=== PATIENT | male | born 1985 | race Caucasian/White ===

== ENCOUNTER 2019-08-11 10:35 | Inpatient (IN) | payer MEDICAID ==
[2019-08-11] VITALS (13 sets, daily range): BP systolic 91–120; BP diastolic 55–86
[~2019-08-11] VITALS: Ht 180.3 cm; Wt 55.8 kg
--- NOTE | 2019-08-11 10:35 | NUR ---
ED Nurse Note: pt brought in by [facility] from home c/c weakness, dehydration, nausea and vomiting since this morning. pt states he is diabetic and took insulin today this morning but denies checking sugar, pt states he had a banana and coffee and some water. noted pt HR 108, RR=28, tachypnea and weak with dry mouth. pt AA&ox4, gcs=15, skin warm and dry, air way intact, sinus tach on cardiac tech, will cont monitor. Addendum: 08/11/19 at 1303 by AMELIE ED Nurse Note: pt brought in by [facility] from home c/c weakness, dehydration, nausea and vomiting since this morning. pt states he is diabetic and took insulin 10 units today this morning but denies checking sugar, pt states he had a banana and coffee and some water. noted pt HR 108, RR=28, tachypnea and weak with dry mouth. pt AA&ox4, gcs=15, skin warm and dry, air way intact, sinus tach on cardiac tech, will cont monitor.
--- NOTE | 2019-08-11 10:40 | NUR ---
ED Nurse Note: ERMD notified regarding critically high blood sugar result, accucheck done at the bedside.
--- NOTE | 2019-08-11 11:00 | NUR ---
ED Nurse Note: PT PROVIDED W/ EXTRA WARM BLANKET FOR COMFORT, SAFETY PRECAUTIONS IN PLACE, WILL CONT MONITOR.
[2019-08-11 11:21] LABS: BASOPHILS % (AUTO) 0.9 % (0.0-2.0); EOSINOPHILS % (AUTO) 0.1 % (0.0-3.0); HEMATOCRIT 51.9 % (42.0-52.0); HEMOGLOBIN 16.4 G/DL (14.2-18.0); LYMPHOCYTES % (AUTO) 10.4 % (20.0-45.0); MEAN CORPUSCULAR VOLUME 101 FL (80-99); NEUTROPHILS % (AUTO) 84.6 % (45.0-75.0); PLATELET COUNT 420 K/UL (150-450); RED BLOOD COUNT 5.15 M/UL (4.70-6.10); RED CELL DISTRIBUTION WIDTH 12.8 % (11.6-14.8); WHITE BLOOD COUNT 13.4 K/UL (4.8-10.8)
[2019-08-11 11:58] LABS: ALANINE AMINOTRANSFERASE 63 U/L (12-78); ALBUMIN 4.3 G/DL (3.4-5.0); ALKALINE PHOSPHATASE 240 U/L (46-116); ANION GAP 29 mmol/L (5-15); ASPARTATE AMINO TRANSFERASE 43 U/L (15-37); BILIRUBIN,TOTAL 0.7 MG/DL (0.2-1.0); BLOOD UREA NITROGEN 30 mg/dL (7-18); CALCIUM 9.7 MG/DL (8.5-10.1); CHLORIDE 94 MMOL/L (98-107); CREATININE 1.7 MG/DL (0.55-1.30); POTASSIUM 5.7 MMOL/L (3.5-5.1); SODIUM 131 MMOL/L (136-145)
--- NOTE | 2019-08-11 12:00 | NUR ---
ED Nurse Note: notified to Dr. Orellana about patient's blood sugar of 757
[2019-08-11 12:01] LABS: CARBON DIOXIDE 8 MMOL/L (21-32)
[2019-08-11] MEDS ORDERED: Insulin Human Regular 100units/ml 3ml IV ONE (12:15)
--- NOTE | 2019-08-11 12:18 | NUR ---
ED Nurse Note: followed up pharmacy with the medication
[2019-08-11] MEDS ORDERED: Sodium Bicarbonate 50ml Carp IV ONE (12:30)
--- NOTE | 2019-08-11 12:43 | NUR ---
ED Nurse Note: RECEIVED INSULIN FROM PHARMACY AND STARTED THE MEDICATION ACCORDING TO ERMD ORDER, 9UNITS/HR, 2 RN VERIFIED.
[2019-08-11 13:25] LABS: APPEARANCE,URINE CLEAR; BILIRUBIN, URINE NEGATIVE (NEGATIVE); COLOR,URINE PALE YELLOW; GLUCOSE, URINE (UA) 4+ (NEGATIVE); KETONES,URINE 4+ (NEGATIVE); LEUKOCYTE ESTERASE ,URINE NEGATIVE (NEGATIVE); NITRITE,URINE NEGATIVE (NEGATIVE); PH,URINE 5 (4.5-8.0); PROTEIN,URINE 1+ (NEGATIVE); UROBILINOGEN,URINE NORMAL MG/DL (0.0-1.0)
--- NOTE | 2019-08-11 13:50 | Emergency Room Report ---
History of Present Illness General Chief Complaint: Vomiting Source: Patient Present Illness HPI 34-year-old male presents ED for evaluation. Brought in by EMS. Coming from home with nausea and vomiting and abdominal pain. History of gastritis. Symptoms started this morning. Pain is burning, 7 out of 10, nonradiating. Denies chest pain or shortness of breath. Denies fevers or chills. Accu-Chek critically high. States she is a diabetic and compliant with his medications. 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 Has not yet seen a PMD for this yet. Is not on any treatment yet. No other aggravating relieving factors. Denies any other associated symptoms Allergies: Coded Allergies: No Known Allergies (Unverified , 08/11/19) Patient History Past Medical History: DM Past Surgical History: none Pertinent Family History: none Social History: Denies: smoking, alcohol use, drug use Immunizations: UTD Reviewed Nursing Documentation: PMH: Agreed; PSxH: Agreed Nursing Documentation-PMH Past Medical History: No History, Except For Hx Diabetes: Yes Review of Systems All Other Systems: negative except mentioned in HPI Physical Exam Vital Signs Date Time Temp Pulse Resp B/P (MAP) Pulse Ox O2 Delivery O2 Flow Rate FiO2 08/11/19 10:35 98.2 98 16 117/82 (94) 99 Room Air Sp02 EP Interpretation: reviewed, normal General Appearance: alert, GCS 15, non-toxic, mild distress, cachetic, thin Head: normocephalic, atraumatic Eyes: bilateral eye normal inspection, bilateral eye PERRL ENT: hearing grossly normal, normal pharynx, no angioedema, normal voice Neck: full range of motion, supple/symm/no masses Respiratory: chest non-tender, lungs clear, normal breath sounds, speaking full sentences Cardiovascular #1: regular rate, rhythm, no edema Cardiovascular #2: 2+ carotid (R), 2+ carotid (L), 2+ radial (R), 2+ radial (L) , 2+ dorsalis pedis (R), 2+ dorsalis pedis (L) Gastrointestinal: normal bowel sounds, soft, non-distended, no guarding, no rebound, tenderness - epigastric Rectal: deferred Genitourinary: normal inspection, no CVA tenderness Musculoskeletal: back normal, gait/station normal, normal range of motion, non- tender Neurologic: alert, oriented x3, responsive, motor strength/tone normal, sensory intact, speech normal Psychiatric: judgement/insight normal, memory normal, mood/affect normal, no suicidal/homicidal ideation Reflexes: 3+ bicep (R), 3+ bicep (L), 3+ tricep (R), 3+ tricep (L), 3+ knee (R) , 3+ knee (L) Lymphatic: no adenopathy Procedures Critical Care Time Critical Care Time i. I feel this is a highly complex case requiring extensive working including EKG/Rhythm strip, Xray/CT/US, Blood/urine lab work, repeat exams while in ED, and administration of strong opiates/narcotics for pain control, admission to hospital or close patient follow up. Total time: 60 min bedside evaluation and treatment excludes procedures (EKG). Reason for critical care: DKA, acidosis Possible complications: hypotension, hypertension, MN, shock, arrhythmias, metabolic acidosis, end organ damage, respiratory failure. Interventions: labs, IVFS, EKG, insulin, insulin bolus, ABG, bicarbonate Course: Patient presenting with vomiting and critically high Accu-Chek. History of diabetes. Glucose greater than 700 with elevated anion gap, low bicarb. pH very low. Given IV fluids, given insulin bolus with insulin drip. Bicarbonate given. Consultations: nursing staff, EMS, family Performed by: Dr Blackwell Tolerated well condition = critical j. because of unstable vital signs this patient had a condition that could potentially threaten life or limb. I feel this is a critical patient who required my full attention while patient was considered critical. Total Critical Care Time excluding procedures was greater than 60 minutes Medical Decision Making Diagnostic Impression: Primary Impression: DKA (diabetic ketoacidoses) Qualified Codes: E13.10 - Other specified diabetes mellitus with ketoacidosis without coma Additional Impressions: Gastritis Qualified Codes: K29.70 - Gastritis, unspecified, without bleeding Leukemia Qualified Codes: C95.90 - Leukemia, unspecified not having achieved remission ER Course Hospital Course 34 yo M presents with abd pain, vomiting, accucheck critically high Differential diagnoses include: ETOH/drug ingestion, sepsis, DKA Clinical course Patient placed on stretcher. On campus monitor. After initial history and physical I ordered labs, pepcid, zofran, IVFS, EKG Labs-glucose greater than 700, anion gap elevated, bicarbonate low, mild leukocytosis EKG - NSR, no acute ischemic changes interpreted by me When IV fluids. Insulin bolus started. Insulin drip started. Bicarbonate given. Case discussed with Dr. Wei and he agreed to accept the patient to his service for further care and support i. I feel this is a highly complex case requiring extensive working including EKG/Rhythm strip, Xray/CT/US, Blood/urine lab work, repeat exams while in ED, and administration of strong opiates/narcotics for pain control, admission to hospital or close patient follow up. j. because of unstable vital signs this patient had a condition that could potentially threaten life or limb. I feel this is a critical patient who required my full attention while patient was considered critical. Total Critical Care Time excluding procedures was greater than 60 minutes diagnosis - DKA, gastritis, leukemia admitted to ICU in critical condition Labs Test 08/11/19 11:05 08/11/19 12:15 White Blood Count 13.4 K/UL (4.8-10.8) Red Blood Count 5.15 M/UL (4.70-6.10) Hemoglobin 16.4 G/DL (14.2-18.0) Hematocrit 51.9 % (42.0-52.0) Mean Corpuscular Volume 101 FL (80-99) Mean Corpuscular Hemoglobin 32.0 PG (27.0-31.0) Mean Corpuscular Hemoglobin Concent 31.7 G/DL (32.0-36.0) Red Cell Distribution Width 12.8 % (11.6-14.8) Platelet Count 420 K/UL (150-450) Mean Platelet Volume 7.0 FL (6.5-10.1) Neutrophils (%) (Auto) 84.6 % (45.0-75.0) Lymphocytes (%) (Auto) 10.4 % (20.0-45.0) Monocytes (%) (Auto) 4.0 % (1.0-10.0) Eosinophils (%) (Auto) 0.1 % (0.0-3.0) Basophils (%) (Auto) 0.9 % (0.0-2.0) Urine Color Pale yellow Urine Appearance Clear Urine pH 5 (4.5-8.0) Urine Specific [place] 1.015 (1.005-1.035) Urine Protein 1+ (NEGATIVE) Urine Glucose (UA) 4+ (NEGATIVE) Urine Ketones 4+ (NEGATIVE) Urine Blood Negative (NEGATIVE) Urine Nitrite Negative (NEGATIVE) Urine Bilirubin Negative (NEGATIVE) Urine Urobilinogen Normal MG/DL (0.0-1.0) Urine Leukocyte Esterase Negative (NEGATIVE) Urine RBC 0 /HPF (0 - 0) Urine WBC 0 /HPF (0 - 0) Urine Squamous Epithelial Cells Occasional /LPF Urine Bacteria Occasional /HPF (NONE) Sodium Level 131 MMOL/L (136-145) Potassium Level 5.7 MMOL/L (3.5-5.1) Chloride Level 94 MMOL/L (98-107) Carbon Dioxide Level 8 MMOL/L (21-32) Anion Gap 29 mmol/L (5-15) Blood Urea Nitrogen 30 mg/dL (7-18) Creatinine 1.7 MG/DL (0.55-1.30) Estimat Glomerular Filtration Rate 46.1 mL/min (>60) Glucose Level 757 MG/DL (74-106) Calcium Level 9.7 MG/DL (8.5-10.1) Magnesium Level 2.4 MG/DL (1.8-2.4) Total Bilirubin 0.7 MG/DL (0.2-1.0) Aspartate Amino Transf (AST/SGOT) 43 U/L (15-37) Alanine Aminotransferase (ALT/SGPT) 63 U/L (12-78) Alkaline Phosphatase 240 U/L (46-116) Total Protein 8.6 G/DL (6.4-8.2) Albumin 4.3 G/DL (3.4-5.0) Globulin 4.3 g/dL Albumin/Globulin Ratio 1.0 (1.0-2.7) Acetone Level Positive-moderate (NEGATIVE) Arterial Blood pH 7.099 (7.350-7.450) Arterial Blood Partial Pressure CO2 < 14.4 mmHg (35.0-45.0) Arterial Blood Partial Pressure O2 136.6 mmHg (75.0-100.0) Arterial Blood HCO3 mmol/L (22.0-26.0) Arterial Blood Oxygen Saturation 97.7 % (95-100) Arterial Blood Base Excess (-2-2) Terry Test Positive EKG Diagnostic Results Rate: normal Rhythm: NSR ST Segments: no acute changes ASA given to the pt in ED: No Rhythm Strip Diag. Results EP Interpretation: yes Rhythm: NSR, no PVC's, no ectopy Last Vital Signs Date Time Temp Pulse Resp B/P (MAP) Pulse Ox O2 Delivery O2 Flow Rate FiO2 08/11/19 12:40 97.3 106 20 113/69 99 Room Air Status: improved Disposition: ADMITTED INPATIENT Condition: Critical Referrals: NON PHYSICIAN (PCP) Roman Blackwell MD Aug 11, 2019 13:50
--- NOTE | 2019-08-11 14:17 | Infectious Diseases Prog Note ---
Assessment/Plan Problems: (1) Cough productive of purulent sputum Assessment & Plan: will order CXR to rule out pneumonia, send sputum culture and start him on vancomycin and cefepime empirically (2) Leukocytosis Assessment & Plan: rule out sepsis in immunocompromised host, will send blood culture x 2 and start vancomycin with cefepime empirically (3) Leukemia Assessment & Plan: was recently diagnosed at [facility], oncology eval is pending (4) DKA (diabetic ketoacidoses) Assessment & Plan: start insulin drip with close monitor of blood glucose in ICU . Subjective Allergies: Coded Allergies: No Known Allergies (Unverified , 08/11/19) Objective Vital Signs Last 24 Hour Vital Signs Date Time Temp Pulse Resp B/P (MAP) Pulse Ox O2 Delivery O2 Flow Rate FiO2 08/11/19 12:40 97.3 106 20 113/69 99 Room Air 08/11/19 11:40 97.3 103 16 118/68 99 Room Air 08/11/19 11:22 108 16 Room Air 08/11/19 10:40 98.2 108 28 120/63 99 Room Air 08/11/19 10:35 98.2 98 16 117/82 (94) 99 Room Air Height (Feet): 5 Height (Inches): 11.00 Weight (Pounds): 125 Laboratory Tests Test 08/11/19 11:05 08/11/19 12:15 White Blood Count 13.4 K/UL (4.8-10.8) H Red Blood Count 5.15 M/UL (4.70-6.10) Hemoglobin 16.4 G/DL (14.2-18.0) Hematocrit 51.9 % (42.0-52.0) Mean Corpuscular Volume 101 FL (80-99) H Mean Corpuscular Hemoglobin 32.0 PG (27.0-31.0) H Mean Corpuscular Hemoglobin Concent 31.7 G/DL (32.0-36.0) L Red Cell Distribution Width 12.8 % (11.6-14.8) Platelet Count 420 K/UL (150-450) Mean Platelet Volume 7.0 FL (6.5-10.1) Neutrophils (%) (Auto) 84.6 % (45.0-75.0) H Lymphocytes (%) (Auto) 10.4 % (20.0-45.0) L Monocytes (%) (Auto) 4.0 % (1.0-10.0) Eosinophils (%) (Auto) 0.1 % (0.0-3.0) Basophils (%) (Auto) 0.9 % (0.0-2.0) Urine Color Pale yellow Urine Appearance Clear Urine pH 5 (4.5-8.0) Urine Specific [place] 1.015 (1.005-1.035) Urine Protein 1+ (NEGATIVE) H Urine Glucose (UA) 4+ (NEGATIVE) H Urine Ketones 4+ (NEGATIVE) H Urine Blood Negative (NEGATIVE) Urine Nitrite Negative (NEGATIVE) Urine Bilirubin Negative (NEGATIVE) Urine Urobilinogen Normal MG/DL (0.0-1.0) Urine Leukocyte Esterase Negative (NEGATIVE) Urine RBC 0 /HPF (0 - 0) Urine WBC 0 /HPF (0 - 0) Urine Squamous Epithelial Cells Occasional /LPF Urine Bacteria Occasional /HPF (NONE) Sodium Level 131 MMOL/L (136-145) L Potassium Level 5.7 MMOL/L (3.5-5.1) H Chloride Level 94 MMOL/L (98-107) L Carbon Dioxide Level 8 MMOL/L (21-32) *L Anion Gap 29 mmol/L (5-15) H Blood Urea Nitrogen 30 mg/dL (7-18) H Creatinine 1.7 MG/DL (0.55-1.30) H Estimat Glomerular Filtration Rate 46.1 mL/min (>60) Glucose Level 757 MG/DL (74-106) *H Calcium Level 9.7 MG/DL (8.5-10.1) Magnesium Level 2.4 MG/DL (1.8-2.4) Total Bilirubin 0.7 MG/DL (0.2-1.0) Aspartate Amino Transf (AST/SGOT) 43 U/L (15-37) H Alanine Aminotransferase (ALT/SGPT) 63 U/L (12-78) Alkaline Phosphatase 240 U/L (46-116) H Total Protein 8.6 G/DL (6.4-8.2) H Albumin 4.3 G/DL (3.4-5.0) Globulin 4.3 g/dL Albumin/Globulin Ratio 1.0 (1.0-2.7) Acetone Level Positive-moderate (NEGATIVE) Arterial Blood pH 7.099 (7.350-7.450) Arterial Blood Partial Pressure CO2 < 14.4 mmHg (35.0-45.0) *L Arterial Blood Partial Pressure O2 136.6 mmHg (75.0-100.0) H Arterial Blood HCO3 mmol/L (22.0-26.0) Arterial Blood Oxygen Saturation 97.7 % (95-100) Arterial Blood Base Excess (-2-2) Terry Test Positive Current Medications Medications (Trade) Dose Ordered Sig/Chace Route PRN Reason Start Time Stop Time Status Last Admin Dose Admin Insulin Human Regular 100 units/ Sodium Chloride 100 ml @ 9 mls/hr Q24H IV 08/11/19 12:15 08/11/19 23:22 08/11/19 12:43 Gordy Zarco M.D. Aug 11, 2019 14:17
--- NOTE | 2019-08-11 14:28 | Consultation ---
History of Present Illness General Date patient seen: Aug 11, 2019 Time patient seen: 14:00 Chief Complaint: nausea,Vomiting and productive cough Referring physician: Maximino Jones Reason for Consultation: leukocytosis rule out sepsis , with cough Present Illness HPI This is a 34-year-old male with PMH of DM poorly controlled , and was recently diagnosed with leukemia at [facility], presented to [facility] ED for nausea, vomiting, and poor oral intake for the last couple of days . Patient developed cough productive of greenish phlegm too over the last 3 days , no SOB. denied any recent travel or sick contact. He also complained of abdominal pain which started this morning. Pain is burning, 7 out of 10, nonradiating. Denies chest pain or shortness of breath. Denies fevers or chills. Accu-Chek in ED was critically high. he is a diabetic and non compliant with his medications. 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 Has not yet seen an oncologist for this yet and not on any treatment yet. Denies any other associated symptoms. in ED his wbc was elevated, so infectious disease consult was requested for antibiotics treatment Allergies: Coded Allergies: No Known Allergies (Unverified , 08/11/19) Patient History History Provided By: Patient, Medical Record, EMS Healthcare decision maker Resuscitation status Advanced Directive on File Past Medical/Surgical History Past Medical/Surgical History: (1) Diabetes mellitus (2) Leukemia (3) Gastritis Review of Systems Constitutional: Reports: malaise, weakness Eye: Reports: no symptoms ENT: Reports: nose congestion, nasal discharge Respiratory: Reports: cough, sputum Cardiovascular: Reports: no symptoms Gastrointestinal: Reports: abdominal pain, nausea, vomiting Genitourinary: Reports: no symptoms Musculoskeletal: Reports: muscle pain Skin: Reports: no symptoms Psychiatric: Reports: anxiety Endocrine: Reports: no symptoms Hematologic/Lymphatic: Reports: see HPI Physical Exam General Appearance: WD/WN, no apparent distress, alert, lethargic, cachetic, thin Lines, tubes and drains: peripheral HEENT: normocephalic, atraumatic, anicteric, mucous membranes moist, PERRL, EOMI, pharynx normal, supple, no JVD Neck: non-tender, normal alignment, supple, normal inspection Respiratory/Chest: chest wall non-tender, no accessory muscle use, decreased breath sounds Cardiovascular/Chest: normal peripheral pulses, normal rate, regular rhythm, no gallop/murmur, no JVD Abdomen: normal bowel sounds, no mass, abnormal bowel sounds, tender Genitourinary/Rectal: normal genital exam Extremities: normal range of motion, non-tender, normal inspection, no calf tenderness Skin Exam: normal pigmentation, warm/dry Neurologic: cardiac technologist II-XII grossly normal, alert, responsive Musculoskeletal: normal muscle bulk, no effusion Last 24 Hour Vital Signs Date Time Temp Pulse Resp B/P (MAP) Pulse Ox O2 Delivery O2 Flow Rate FiO2 08/11/19 12:40 97.3 106 20 113/69 99 Room Air 08/11/19 11:40 97.3 103 16 118/68 99 Room Air 08/11/19 11:22 108 16 Room Air 08/11/19 10:40 98.2 108 28 120/63 99 Room Air 08/11/19 10:35 98.2 98 16 117/82 (94) 99 Room Air Laboratory Tests Test 08/11/19 11:05 08/11/19 12:15 White Blood Count 13.4 K/UL (4.8-10.8) H Red Blood Count 5.15 M/UL (4.70-6.10) Hemoglobin 16.4 G/DL (14.2-18.0) Hematocrit 51.9 % (42.0-52.0) Mean Corpuscular Volume 101 FL (80-99) H Mean Corpuscular Hemoglobin 32.0 PG (27.0-31.0) H Mean Corpuscular Hemoglobin Concent 31.7 G/DL (32.0-36.0) L Red Cell Distribution Width 12.8 % (11.6-14.8) Platelet Count 420 K/UL (150-450) Mean Platelet Volume 7.0 FL (6.5-10.1) Neutrophils (%) (Auto) 84.6 % (45.0-75.0) H Lymphocytes (%) (Auto) 10.4 % (20.0-45.0) L Monocytes (%) (Auto) 4.0 % (1.0-10.0) Eosinophils (%) (Auto) 0.1 % (0.0-3.0) Basophils (%) (Auto) 0.9 % (0.0-2.0) Urine Color Pale yellow Urine Appearance Clear Urine pH 5 (4.5-8.0) Urine Specific [place] 1.015 (1.005-1.035) Urine Protein 1+ (NEGATIVE) H Urine Glucose (UA) 4+ (NEGATIVE) H Urine Ketones 4+ (NEGATIVE) H Urine Blood Negative (NEGATIVE) Urine Nitrite Negative (NEGATIVE) Urine Bilirubin Negative (NEGATIVE) Urine Urobilinogen Normal MG/DL (0.0-1.0) Urine Leukocyte Esterase Negative (NEGATIVE) Urine RBC 0 /HPF (0 - 0) Urine WBC 0 /HPF (0 - 0) Urine Squamous Epithelial Cells Occasional /LPF Urine Bacteria Occasional /HPF (NONE) Sodium Level 131 MMOL/L (136-145) L Potassium Level 5.7 MMOL/L (3.5-5.1) H Chloride Level 94 MMOL/L (98-107) L Carbon Dioxide Level 8 MMOL/L (21-32) *L Anion Gap 29 mmol/L (5-15) H Blood Urea Nitrogen 30 mg/dL (7-18) H Creatinine 1.7 MG/DL (0.55-1.30) H Estimat Glomerular Filtration Rate 46.1 mL/min (>60) Glucose Level 757 MG/DL (74-106) *H Calcium Level 9.7 MG/DL (8.5-10.1) Magnesium Level 2.4 MG/DL (1.8-2.4) Total Bilirubin 0.7 MG/DL (0.2-1.0) Aspartate Amino Transf (AST/SGOT) 43 U/L (15-37) H Alanine Aminotransferase (ALT/SGPT) 63 U/L (12-78) Alkaline Phosphatase 240 U/L (46-116) H Total Protein 8.6 G/DL (6.4-8.2) H Albumin 4.3 G/DL (3.4-5.0) Globulin 4.3 g/dL Albumin/Globulin Ratio 1.0 (1.0-2.7) Acetone Level Positive-moderate (NEGATIVE) Arterial Blood pH 7.099 (7.350-7.450) Arterial Blood Partial Pressure CO2 < 14.4 mmHg (35.0-45.0) *L Arterial Blood Partial Pressure O2 136.6 mmHg (75.0-100.0) H Arterial Blood HCO3 mmol/L (22.0-26.0) Arterial Blood Oxygen Saturation 97.7 % (95-100) Arterial Blood Base Excess (-2-2) Terry Test Positive Height (Feet): 5 Height (Inches): 11.00 Weight (Pounds): 125 Medications Current Medications Medications (Trade) Dose Ordered Sig/Chace Route PRN Reason Start Time Stop Time Status Last Admin Dose Admin Insulin Human Regular 100 units/ Sodium Chloride 100 ml @ 9 mls/hr Q24H IV 08/11/19 12:15 08/11/19 23:22 08/11/19 12:43 Assessment/Plan Problem List: (1) Cough productive of purulent sputum Assessment & Plan: will order CXR to rule out pneumonia, send sputum culture and start him on vancomycin and cefepime empirically ICD Codes: R05 - Cough SNOMED: 26317636 (2) Leukocytosis Assessment & Plan: rule out sepsis in immunocompromised host, will send blood culture x 2 and start vancomycin with cefepime empirically ICD Codes: D72.829 - Elevated white blood cell count, unspecified SNOMED: 944432840, 498616865 (3) Leukemia Assessment & Plan: was recently diagnosed at [facility], oncology eval is pending ICD Codes: C95.90 - Leukemia, unspecified not having achieved remission SNOMED: 28984771, 64487538 Qualifiers: Qualified Codes: C95.90 - Leukemia, unspecified not having achieved remission (4) DKA (diabetic ketoacidoses) Assessment & Plan: start insulin drip with close monitor of blood glucose in ICU . ICD Codes: E11.10 - Type 2 diabetes mellitus with ketoacidosis without coma SNOMED: 238676422, 96293035 Qualifiers: Qualified Codes: E13.10 - Other specified diabetes mellitus with ketoacidosis without coma Gordy Zarco M.D. Aug 11, 2019 14:28
--- NOTE | 2019-08-11 14:30 | NUR ---
ED Nurse Note: Patient refused CRe and VRE swab, MRSA swab collected
--- NOTE | 2019-08-11 15:07 | Diagnostic Imaging Report ---
Indication: Chest pain Comparison: None A single view chest radiograph was obtained. Findings: Cardiomediastinal appearance is within normal limits for age. The lungs are clear. Pulmonary vascularity is appropriate. The diaphragmatic contour is smooth and costophrenic angles are sharp. No pleural effusions are identified. The bones are unremarkable. Impression: No acute findings
--- NOTE | 2019-08-11 15:40 | NUR ---
ED Nurse Note: paged doctor nasreen regarding admission order and start pt based on DKA protocol and insulin drip based on hospital policy.
[2019-08-11 15:43] LABS: ANION GAP 22 mmol/L (5-15); BLOOD UREA NITROGEN 24 mg/dL (7-18); CARBON DIOXIDE 16 MMOL/L (21-32); CHLORIDE 104 MMOL/L (98-107); CREATININE 1.4 MG/DL (0.55-1.30); POTASSIUM 4.3 MMOL/L (3.5-5.1); SODIUM 142 MMOL/L (136-145)
--- NOTE | 2019-08-11 15:43 | NUR ---
ED Nurse Note: insulin drip changed to 3.5 units /hr per policy. 2 rn verified.
[2019-08-11 15:48] LABS: ALANINE AMINOTRANSFERASE 52 U/L (12-78); ALBUMIN 3.4 G/DL (3.4-5.0); ALKALINE PHOSPHATASE 186 U/L (46-116); ASPARTATE AMINO TRANSFERASE 31 U/L (15-37); BILIRUBIN,TOTAL 0.5 MG/DL (0.2-1.0)
--- NOTE | 2019-08-11 15:50 | NUR ---
Donaldo bethea in ED - 08/11/19 at 1719 by [email or web address] ED Nurse Note: paged doctor nasreen for admission order.
--- NOTE | 2019-08-11 15:55 | NUR ---
Note neema in EDM - 08/11/19 at 1719 by KPAKARINE ED Nurse Note: spoke with Dr. Wei and start pt on DKA ICU's protocol and start insulin drip based on hospital policy.
[2019-08-11] MEDS ORDERED: Insulin Human Regular 100units/ml 3ml IV PRN ×5 (16:00→20:15)
--- NOTE | 2019-08-11 16:10 | NUR ---
ED Nurse Note: contacted Dr. Wei to notify repeat CMP order, per doctor's telephone order/readback, d/c insulin drip. start lantus 10units bid, regular insulin 5 units w/ meals, and start pt on moderate insulin protocol. NS = 150cc/hr for iv fluid contact Liz for physician consult. will cont monitor.
--- NOTE | 2019-08-11 16:14 | NUR ---
ED Nurse Note: dc insulin drip per Dr. Wei, 2 rn verified.
[2019-08-11] MEDS ORDERED: NovoLOG Insulin Flexpen SUBQ SCH ×2 (16:30→16:50)
--- NOTE | 2019-08-11 16:37 | NUR ---
ED Nurse Note: contacted Dr. Wei regarding pt's admission to ICU, per Dr. Wei downgrade pt to SDU. nurse sup notified.
[2019-08-11] MEDS ORDERED: Cefepime HCl 2 GM in D5W 55 ML IVPB SCH (17:00)
--- NOTE | 2019-08-11 17:35 | NUR ---
ED Nurse Note: report given to YUDELKA Weiss from ICU - SDU overflow.
--- NOTE | 2019-08-11 17:50 | NUR ---
TRANSFER TO FLOOR: Patient transferred to ICU (SDU overflow) via gurney on ACLS protocol and care endorsed to YUDELKA Carreno, report was given to nursery hand nurse Isela from ICU. pt sinus tach on cardiac monitor technician, resp even and unlabored on RA, iv intact and patent, informed receiving YUDELKA Carreno to contact Dr. Hill for consult and pt refusing swabs for vre/cre. belongings sent w/ pt and endorsed.
[2019-08-11] MEDS ORDERED: Levemir Flexpen SUBQ SCH (18:00)
[2019-08-11] MEDS ORDERED: Vancomycin 1gm/D5W 275ml IVPB ONE ×2 (18:00)
[2019-08-11] MEDS ORDERED: HUMULIN 70100 UNIT/2 SUBQ (18:37)
--- NOTE | 2019-08-11 19:12 | NUR ---
HAND-OFF: Report given to YUDELKA Vargas.
--- NOTE | 2019-08-11 19:12 | NUR ---
NURSE NOTES: Received report from Ev Jones RN. Patient asleep and responsive to verbal. Denies any pain/discomfort. No nausea/vomiting noted. Right AC 18G and Left FA 22G IV intact and running NS 150ml/hr. Will continue plan of care.
[2019-08-11] MEDS ORDERED: D5 1/2NS 1,000 ML IV SCH ×2 (20:15)
[2019-08-11] MEDS ORDERED: Insulin Rate Change 1 Each MISC PRN ×2 (20:15)
--- NOTE | 2019-08-11 20:17 | NUR ---
NURSE NOTES: Talked with Dr. Hill and new orders read back and carried. Will continue plan of care.
[2019-08-11] MEDS: D5NS 1,000 ML IV SCH (20:36)
--- NOTE | 2019-08-11 21:30 | NUR ---
NURSE NOTES: Started insulin drip 1.5 unit/hr with Algorithm 1. Will continue plan of care.
--- NOTE | 2019-08-11 22:30 | NUR ---
NURSE NOTES: Insulin drip rate changed to 2.5unit/hr and 5 units bolus given. Will continue plan of care.
[2019-08-11] MEDS: Insulin Human Regular 100units/ml 3ml IV PRN ×2 (22:38→23:36)
--- NOTE | 2019-08-11 23:30 | NUR ---
NURSE NOTES: SONY 236 noted. Changed algorithm 1 to 2 and Insulin 5 units bolus given. And called [employer] for new label. Addendum: 08/12/19 at 0104 by ADIA ARECHIGA RN Wrong entry.
[2019-08-12] VITALS (18 sets, daily range): BP systolic 87–117; BP diastolic 51–84
--- NOTE | 2019-08-12 00:30 | NUR ---
NURSE NOTES: BS 236 noted. Changed algorithm 1 to 2 and Insulin 5 units bolus given. And called [facility] for new label.
[2019-08-12] MEDS: Insulin Human Regular 100units/ml 3ml IV PRN (00:42)
--- NOTE | 2019-08-12 00:45 | NUR ---
NURSE NOTES: Unable to start new insulin order because rate of new insulin drip order for algorithm 2 is ml/hr. Called [facility] and requested to change to unit/hr. Will continue plan of care.
--- NOTE | 2019-08-12 02:30 | NUR ---
NURSE NOTES: BS in target range. Will continue plan of care.
--- NOTE | 2019-08-12 03:36 | NUR ---
NURSE NOTES: BS is in target range. No s/sx of hypoglycemia noted. Will continue plan of care.
[2019-08-12] MEDS ORDERED: Cefepime HCl 2 GM in NS 55 ML IVPB SCH (05:00)
[2019-08-12] MEDS: D5NS 1,000 ML IV SCH (05:42)
[2019-08-12] MEDS ORDERED: Vancomycin 500 MG in NS 110 ML IVPB SCH (06:00)
[2019-08-12] MEDS ORDERED: Vancomycin 500mg/D5W 110ml IVPB SCH ×2 (06:00)
[2019-08-12 06:30] LABS: ANION GAP 13 mmol/L (5-15); BLOOD UREA NITROGEN 14 mg/dL (7-18); CALCIUM 7.9 MG/DL (8.5-10.1); CARBON DIOXIDE 22 MMOL/L (21-32); CHLORIDE 105 MMOL/L (98-107); CREATININE 1.2 MG/DL (0.55-1.30); POTASSIUM 3.6 MMOL/L (3.5-5.1); SODIUM 140 MMOL/L (136-145)
--- NOTE | 2019-08-12 06:30 | NUR ---
NURSE NOTES: Blood sugar 61 noted. Will check BS at 0700 and will follow up with
[2019-08-12 06:43] LABS: BASOPHILS % (AUTO) 1.6 % (0.0-2.0); EOSINOPHILS % (AUTO) 1.5 % (0.0-3.0); HEMATOCRIT 39.3 % (42.0-52.0); HEMOGLOBIN 13.3 G/DL (14.2-18.0); LYMPHOCYTES % (AUTO) 29.7 % (20.0-45.0); MEAN CORPUSCULAR VOLUME 96 FL (80-99); MONOCYTES % (AUTO) 7.3 % (1.0-10.0); PLATELET COUNT 321 K/UL (150-450); RED CELL DISTRIBUTION WIDTH 11.1 % (11.6-14.8); WHITE BLOOD COUNT 8.9 K/UL (4.8-10.8)
--- NOTE | 2019-08-12 07:35 | NUR ---
HAND-OFF: Report given to YUDELKA Estes. Endorsed plan of care.
[2019-08-12] MEDS ORDERED: Levemir Flexpen SUBQ SCH (08:00)
--- NOTE | 2019-08-12 08:00 | NUR ---
NURSE NOTES: Receive end of shift report from Sam JHA. Pt is awake, alert, oriented x4. Pt is on room air with 100% O2sat and clear lung sounds. scrubbing machine operator displays NSR with heart rate in the 90s. Bounding peripheral pulses are noted on palpation. Abdomen is flat, soft, nontender to touch with active bowel sounds on auscultation. Skin is intact. Pt has two peripheral IV access, right AC #18G and left FA #20G. Insulin drip has been stopped per MD order and IV fluid is being replaced with NS at 100ml/hour per MD order. Pt denies any pain or discomfort at this time. Pt is sitting up in bed having breakfast. Bed is locked, in lowest position, the two side rails up, and call light within reach. Urinal is at bedside. Will continue with plan of care.
--- NOTE | 2019-08-12 10:00 | NUR ---
NURSE NOTES: Pt was seen by Dr Hill. MD aware regarding lab results, pt now off insulin drip and on NS at 100ml/hour. Per MD pt to be administered Levemir and Novolog insulins SQ per order and sliding scale.
--- NOTE | 2019-08-12 10:30 | NUR ---
NURSE NOTES: Pt is asleep with stable VS and in no apparent distress.
[2019-08-12] MEDS ORDERED: NovoLOG Insulin Flexpen SUBQ SCH ×2 (11:30→11:50)
--- NOTE | 2019-08-12 12:10 | NUR ---
NURSE NOTES: Pt is sitting up in bed, having lunch. Denies any pain or discomfort at this time. Pt remains on room air with 100% O2sat and newscast producer displays NSR with heart rate in the 70's. Pt remains afebrile. IV fluid continues to infuse NS at 100ml/hour. Blood glucose was reassessed via Accucheck with result 219 and insulin was administered per Sliding Scale order plus 5units Novolog standing order. Order in place to transfer pt out of ICU to med surg. Awaiting for bed availability.
--- NOTE | 2019-08-12 14:30 | NUR ---
NURSE NOTES: Pt is refusing to have gown/bed linens changed. Denies any pain or discomfort at this time. VS stable. Will be transferring pt to Med Surg per MD order.
--- NOTE | 2019-08-12 14:40 | NUR ---
TRANSFER TO FLOOR: Patient was transferred to Med Surg via hospital bed per MD order. Report was given to Verna JHA. Pt's belonging's list was checked and signed in front of the pt with the receiving nurse. Skin is intact. VS stable. Endorsed plan of care.
--- NOTE | 2019-08-12 14:41 | NUR ---
NURSE NOTES: Patient arrived on unit via hospital bed. Stable. Denies pain or SOB. Patient oriented to room, call light, and unit. Patient encouraged to use call light for assistance, verbalized understanding. Belongings accounted for with 2 RN. Patient's home insulin sent down to pharmacy. Patient is in bed in locked and lowest position with call light within reach. Will continue to monitor.
[2019-08-12] MEDS: Cefepime HCl 2 GM in NS 55 ML IVPB SCH (16:50)
--- NOTE | 2019-08-12 16:50 | Consultation ---
History of Present Illness General Chief Complaint: Vomiting Referring physician: Maximino Jones Reason for Consultation: leukocytosis rule out sepsis , with cough Present Illness Allergies: Coded Allergies: No Known Allergies (Unverified , 08/11/19) Medication History Miscellaneous Medications Hum Insulin Nph/Reg Insulin Hm (Humulin 70-30 Vial), 0 SUBQ, (Reported) Patient History Healthcare decision maker Resuscitation status Full Code Advanced Directive on File No Physical Exam Last 24 Hour Vital Signs Date Time Temp Pulse Resp B/P (MAP) Pulse Ox O2 Delivery O2 Flow Rate FiO2 08/12/19 14:50 97.4 100 16 111/67 (82) 99 08/12/19 14:00 90 16 110/60 (77) 100 08/12/19 13:00 98 15 103/51 (68) 100 08/12/19 12:00 84 08/12/19 12:00 98.0 96 16 114/80 (91) 100 08/12/19 12:00 Room Air 08/12/19 11:00 82 16 117/84 (95) 100 08/12/19 10:00 84 16 104/62 (76) 100 08/12/19 09:00 94 16 105/63 (77) 100 08/12/19 08:00 97.7 96 16 99/59 (72) 100 08/12/19 08:00 Room Air 08/12/19 08:00 97 08/12/19 07:00 89 14 92/60 (71) 100 08/12/19 06:00 87 14 87/64 (72) 100 08/12/19 05:00 90 14 96/61 (73) 100 08/12/19 04:00 Room Air 08/12/19 04:00 91 14 94/56 (69) 100 08/12/19 04:00 105 08/12/19 03:00 89 14 88/56 (67) 100 08/12/19 02:00 83 14 88/56 (67) 100 08/12/19 01:00 102 15 97/54 (68) 100 08/12/19 00:00 Room Air 08/12/19 00:00 98.0 108 15 106/67 (80) 100 08/12/19 00:00 108 08/11/19 23:00 107 16 104/67 (79) 100 08/11/19 22:00 94 16 95/59 (71) 96 08/11/19 21:00 94 14 94/56 (69) 100 08/11/19 20:00 98.3 90 15 99/59 (72) 100 08/11/19 20:00 Room Air 08/11/19 20:00 92 08/11/19 19:00 95 14 91/55 (67) 100 08/11/19 18:22 Room Air 08/11/19 18:10 98.3 92 18 99/58 (72) 100 08/11/19 17:50 98.5 103 16 107/56 100 Room Air Intake and Output 08/11/19 08/12/19 19:00 07:00 Intake Total 100 ml 1806.6 ml Balance 100 ml 1806.6 ml Intake Oral 480 ml IV Total 100 ml 1326.6 ml # Voids 1 # Bowel Movements 2 Laboratory Tests Test 08/12/19 05:33 White Blood Count 8.9 K/UL (4.8-10.8) Red Blood Count 4.10 M/UL (4.70-6.10) L Hemoglobin 13.3 G/DL (14.2-18.0) L Hematocrit 39.3 % (42.0-52.0) L Mean Corpuscular Volume 96 FL (80-99) Mean Corpuscular Hemoglobin 32.5 PG (27.0-31.0) H Mean Corpuscular Hemoglobin Concent 33.9 G/DL (32.0-36.0) Red Cell Distribution Width 11.1 % (11.6-14.8) L Platelet Count 321 K/UL (150-450) Mean Platelet Volume 6.7 FL (6.5-10.1) Neutrophils (%) (Auto) 60.0 % (45.0-75.0) Lymphocytes (%) (Auto) 29.7 % (20.0-45.0) Monocytes (%) (Auto) 7.3 % (1.0-10.0) Eosinophils (%) (Auto) 1.5 % (0.0-3.0) Basophils (%) (Auto) 1.6 % (0.0-2.0) Sodium Level 140 MMOL/L (136-145) Potassium Level 3.6 MMOL/L (3.5-5.1) Chloride Level 105 MMOL/L (98-107) Carbon Dioxide Level 22 MMOL/L (21-32) Anion Gap 13 mmol/L (5-15) Blood Urea Nitrogen 14 mg/dL (7-18) Creatinine 1.2 MG/DL (0.55-1.30) Estimat Glomerular Filtration Rate > 60 mL/min (>60) Glucose Level 92 MG/DL (74-106) # Hemoglobin A1c 10.3 % (4.3-6.0) H Calcium Level 7.9 MG/DL (8.5-10.1) L Height (Feet): 5 Height (Inches): 11.00 Weight (Pounds): 130 Medications Current Medications Medications (Trade) Dose Ordered Sig/Chace Route PRN Reason Start Time Stop Time Status Last Admin Dose Admin Cefepime HCl 2 gm/ Sodium Chloride 55 ml @ 110 mls/hr Q12HR@0500,1700 IVPB 08/12/19 17:00 08/18/19 16:59 Dextrose (Dextrose 50%) 25 ml Q30M PRN IV Hypoglycemia 08/12/19 14:45 09/11/19 07:14 Dextrose (Dextrose 50%) 50 ml Q30M PRN IV Hypoglycemia 08/12/19 14:45 09/11/19 07:14 Insulin Aspart (NovoLOG) BEFORE MEALS AND HS SUBQ 08/12/19 16:30 09/11/19 11:29 Insulin Aspart (NovoLOG) 5 units NOVOTIAC SUBQ 08/12/19 16:50 09/11/19 11:49 Insulin Detemir (Levemir) 15 units DAILY SUBQ 08/13/19 09:00 09/11/19 07:59 Sodium Chloride 1,000 ml @ 100 mls/hr Q10H IV 08/12/19 14:45 09/11/19 07:59 08/12/19 14:45 Vancomycin HCl (Vanco rx to dose) 1 ea DAILY PRN MISC Per rx protocol 08/12/19 15:00 09/11/19 14:59 Vancomycin HCl 500 mg/Sodium Chloride 110 ml @ 110 mls/hr Q12HR@0600,1800 IVPB 08/12/19 18:00 08/17/19 05:59 Assessment/Plan Assessment/Plan: Hematology Consult Chief Complaint: nausea,Vomiting and productive cough Referring physician: Connor Jones Reason for Consultation: leukocytosis rule out sepsis, anemia DOS: 9.28.19 HPI 34-year-old male with PMH of DM poorly controlled , and was recently diagnosed with leukemia at [facility], presented to [facility] ED for nausea, vomiting, and poor oral intake for the last couple of days . Patient developed cough productive of greenish phlegm too over the last 3 days , no SOB. denied any recent travel or sick contact. He also complained of abdominal pain which started this morning. Pain is burning, 7 out of 10, nonradiating. Denies chest pain or shortness of breath. Denies fevers or chills. Accu-Chek in ED was critically high. he is a diabetic and non compliant with his medications. 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 Has not yet seen an oncologist for this yet and not on any treatment yet. Denies any other associated symptoms. in ED his wbc was elevated, so infectious disease consult was requested for antibiotics treatment, at this time, does not want to discuss leukemia dx. Allergies: No Known Allergies (Unverified , 08/11/19) Patient History History Provided By: Patient, Medical Record, EMS Healthcare decision maker Resuscitation status Advanced Directive on FilePast Medical/Surgical History: (1) Diabetes mellitus (2) Leukemia (3) Gastritis Review of Systems Constitutional: Reports: malaise, weakness Eye: Reports: no symptoms ENT: Reports: nose congestion, nasal discharge Respiratory: Reports: cough, sputum Cardiovascular: Reports: no symptoms Gastrointestinal: Reports: abdominal pain, nausea, vomiting Genitourinary: Reports: no symptoms Musculoskeletal: Reports: muscle pain Skin: Reports: no symptoms Psychiatric: Reports: anxiety Endocrine: Reports: no symptoms Hematologic/Lymphatic: Reports: see HPI Physical Exam General Appearance: nad, alert, lethargic, cachetic Neck: non-tender, normal alignment, supple Respiratory: chest wall non-tender, no accessory muscle use Cardiovascular/Chest: normal peripheral pulses, rrr Abdomen: normal bowel sounds, no mass, abnormal bowel sounds, tender Extremities: normal range of motion, non-tender, normal inspection, no calf tenderness Neurologic: recreation teacher II-XII grossly normal, alert, responsive Musculoskeletal: normal muscle bulk Labs: noted Imaging: reviewed Assessment and Recs: # Leukemia recently diagnosed recently at [facility], has a bone marrow biopsy at [facility], was in custody/incarcerated, does not remember exactly what type of leukemia he has had --> has not started chemotherapy --> plans to see oncologist once discharged --> trend labs with the wbc --> no evidence of acute DIC issues --> labs have been reviewed # Anemia of chronic disease --> monitor as needed currently appears stable --> hgb trend 13 # Cough productive of purulent sputum --> will order CXR to rule out pneumonia, vanc/cefepime --> per id care # Leukocytosis --> on abx as per id # DKA (diabetic ketoacidoses) --> insulin drip with close monitor of blood glucose in ICU . --> Type 2 diabetes mellitus with ketoacidosis without coma # Dvt ppx scds Greatly appreciate consultation. Tu Jorgensen MD Aug 12, 2019 16:50
[2019-08-12] MEDS: NovoLOG Insulin Flexpen SUBQ SCH ×3 (16:53→21:19)
[2019-08-12] MEDS: Vancomycin 500 MG in NS 110 ML IVPB SCH (18:08)
--- NOTE | 2019-08-12 19:21 | NUR ---
HAND-OFF: Report given to Rayne IRVING. Patient is stable.
--- NOTE | 2019-08-12 20:00 | NUR ---
NURSE NOTES: RECEIVED PATIENT LYING IN BED, AWAKE, ALERT/ORIENTED X4, DENIES PAIN. IV INTACT TO LEFT FOREARM/GAUGE 22, TOLERATING IV FLUIDS, NO REDNESS/SWELLING NOTED TO SITE. DIABETIC MANAGEMENT ONGING. NO SIGNS AND SYMPTOMS OF ACUTE CARDIO RESPIRATORY DISTRESS/SHORTNESS OF BREATH, DENIES CHEST PAIN, NO PERIPHERAL EDEMA NOTED. NO COMPLAINT OF GI DISCOMFORT, NO N/V/D, BATHROOM PRIVILEGES. SIDE RAILS UP X2 FOR MOBILITY, BED IN LOWEST POSITION FOR SAFETY, ENCOURAGED PATIENT TO UTILIZE CALL LIGHT FOR ASSISTANCE, VERBALIZED UNDERSTANDING. NAD.
--- NOTE | 2019-08-12 20:15 | Consultation ---
DATE OF CONSULTATION: 08/12/2019 ENDOCRINOLOGY CONSULTATION CONSULTING PHYSICIAN: Deon Hill M.D. REFERRING PHYSICIAN: Anh Wei M.D. REASON FOR CONSULTATION: DKA. HISTORY OF PRESENT ILLNESS: The patient is a 34-year-old male with history of type 1 diabetes on insulin mix therapy, also with history of gastritis, and recently diagnosis of leukemia about a month ago while incarcerated. The patient has not seen a PMD for this yet, not on any treatment yet. The patient presented to the hospital with abdominal symptoms, elevated glucose of 700, open anion gap. He was started on IV fluid and IV insulin, transferred to the ICU. Insulin drip was continued until this morning when the gap was closed. I was notified by the RN last night and this morning, and this morning, he was switched to insulin therapy from drip to subcu. PAST MEDICAL HISTORY: Type 1 diabetes, recent diagnosis of leukemia. PAST SURGICAL HISTORY: None. FAMILY HISTORY: Noncontributory. SOCIAL HISTORY: Denies any smoking, alcohol, or drug use. REVIEW OF SYSTEMS: As per HPI. LABORATORY DATA: Sodium 140, potassium 3.6, chloride 105, bicarbonate 22, BUN 14, creatinine 1.2, glucose of 92. A1c of 10.3. Urine was positive for ketones. CBC shows WBC of 8.9, hemoglobin 13, hematocrit 39.3, platelets of 321,000. Urine 4+ glucose, 4+ ketones, 1+ protein. PHYSICAL EXAMINATION: VITAL SIGNS: Blood pressure 92/60, pulse 89, temperature 98, respiratory rate of 14. HEENT: Pupils reactive to light. Sclerae anicteric. NECK: No JVD. HEART: Regular. LUNGS: Clear. ABDOMEN: Positive bowel sounds. Soft. EXTREMITIES: No clubbing, cyanosis, or edema. DIAGNOSES: 1. DKA. 2. Type 1 diabetes. 3. Questionable recent diagnosis of leukemia. PLAN: 1. Insulin drip discontinued this morning. 2. Change IV fluid to NS at 100. 3. Levemir 15 units q.a.m. 4. NovoLog 5 units before each meal and NovoLog sliding scale before meals and at bedtime. 5. Further adjustment according to blood glucose values. 6. Electrolytes will be followed and repleted. Thank you, Dr. Wei, for the courtesy of this consultation. Deon Hill M.D. DR: Sam JOB#: [id number] CC:
--- NOTE | 2019-08-12 21:19 | NUR ---
NURSE NOTES: MONITORED BLOOD GLUCOSE LEVEL VIA GLUCOMETER WITH RESULT 112MG/DL, ASYMPTOMATIC, ADMINISTERED 2 UNITS NOVOLOG INSULIN SUBCUT, TOLERATED WELL, NO ADVERSE REACTION NOTED AFTER 15 MINUTES.
--- NOTE | 2019-08-12 22:18 | Infectious Diseases Prog Note ---
Assessment/Plan Problems: (1) Cough productive of purulent sputum Assessment & Plan: await sputum culture and continue vancomycin and cefepime empirically. CXR no active infiltrates (2) Leukocytosis Assessment & Plan: rule out sepsis in immunocompromised host, await blood culture x 2 and continue vancomycin with cefepime empirically (3) Leukemia Assessment & Plan: was recently diagnosed at [facility], oncology eval is pending (4) DKA (diabetic ketoacidoses) Assessment & Plan: continue insulin with close monitor of blood glucose Subjective Constitutional: Reports: fatigue, anorexia HEENT: Reports: no symptoms Respiratory: Reports: no symptoms Breasts: Reports: no symptoms Cardiovascular: Reports: no symptoms Gastrointestinal/Abdominal: Reports: no symptoms Genitourinary: Reports: no symptoms Neurologic: Reports: no symptoms Psychiatric: Reports: no symptoms Skin: Reports: no symptoms Endocrine: Reports: no symptoms Hematologic: Reports: other Musculoskeletal: Reports: no symptoms Allergies: Coded Allergies: No Known Allergies (Unverified , 08/11/19) Objective Vital Signs Last 24 Hour Vital Signs Date Time Temp Pulse Resp B/P (MAP) Pulse Ox O2 Delivery O2 Flow Rate FiO2 08/12/19 21:00 Room Air 08/12/19 16:00 97.3 91 107/65 (79) 08/12/19 14:50 97.4 100 16 111/67 (82) 99 08/12/19 14:00 90 16 110/60 (77) 100 08/12/19 13:00 98 15 103/51 (68) 100 08/12/19 12:00 84 08/12/19 12:00 98.0 96 16 114/80 (91) 100 08/12/19 12:00 Room Air 08/12/19 11:00 82 16 117/84 (95) 100 08/12/19 10:00 84 16 104/62 (76) 100 08/12/19 09:00 94 16 105/63 (77) 100 08/12/19 08:00 97.7 96 16 99/59 (72) 100 08/12/19 08:00 Room Air 08/12/19 08:00 97 08/12/19 07:00 89 14 92/60 (71) 100 08/12/19 06:00 87 14 87/64 (72) 100 08/12/19 05:00 90 14 96/61 (73) 100 08/12/19 04:00 Room Air 08/12/19 04:00 91 14 94/56 (69) 100 08/12/19 04:00 105 08/12/19 03:00 89 14 88/56 (67) 100 08/12/19 02:00 83 14 88/56 (67) 100 08/12/19 01:00 102 15 97/54 (68) 100 08/12/19 00:00 Room Air 08/12/19 00:00 98.0 108 15 106/67 (80) 100 08/12/19 00:00 108 08/11/19 23:00 107 16 104/67 (79) 100 Height (Feet): 5 Height (Inches): 11.00 Weight (Pounds): 130 General Appearance: WD/WN, no acute distress HEENT: normocephalic, atraumatic, anicteric, mucous membranes moist, PERRL, EOMI, pharynx normal, no JVD Respiratory/Chest: chest wall non-tender, no respiratory distress, no accessory muscle use, decreased breath sounds, expiratory wheezing Cardiovascular: normal peripheral pulses, normal rate, regular rhythm, no gallop/murmur, no JVD Abdomen: normal bowel sounds, soft, non tender, no organomegaly, non distended , no mass, no scars Genitourinary: normal external genitalia Extremities: no cyanosis, no clubbing Skin: no rash, no lesions, no ulcers Neurologic/Psychiatric: photovoltaic technician II-XII grossly normal, no motor/sensory deficits, abnormal gait, alert, oriented x 3, responsive Musculoskeletal: normal muscle bulk, no effusion Laboratory Tests Test 08/12/19 05:33 White Blood Count 8.9 K/UL (4.8-10.8) Red Blood Count 4.10 M/UL (4.70-6.10) L Hemoglobin 13.3 G/DL (14.2-18.0) L Hematocrit 39.3 % (42.0-52.0) L Mean Corpuscular Volume 96 FL (80-99) Mean Corpuscular Hemoglobin 32.5 PG (27.0-31.0) H Mean Corpuscular Hemoglobin Concent 33.9 G/DL (32.0-36.0) Red Cell Distribution Width 11.1 % (11.6-14.8) L Platelet Count 321 K/UL (150-450) Mean Platelet Volume 6.7 FL (6.5-10.1) Neutrophils (%) (Auto) 60.0 % (45.0-75.0) Lymphocytes (%) (Auto) 29.7 % (20.0-45.0) Monocytes (%) (Auto) 7.3 % (1.0-10.0) Eosinophils (%) (Auto) 1.5 % (0.0-3.0) Basophils (%) (Auto) 1.6 % (0.0-2.0) Sodium Level 140 MMOL/L (136-145) Potassium Level 3.6 MMOL/L (3.5-5.1) Chloride Level 105 MMOL/L (98-107) Carbon Dioxide Level 22 MMOL/L (21-32) Anion Gap 13 mmol/L (5-15) Blood Urea Nitrogen 14 mg/dL (7-18) Creatinine 1.2 MG/DL (0.55-1.30) Estimat Glomerular Filtration Rate > 60 mL/min (>60) Glucose Level 92 MG/DL (74-106) # Hemoglobin A1c 10.3 % (4.3-6.0) H Calcium Level 7.9 MG/DL (8.5-10.1) L Current Medications Medications (Trade) Dose Ordered Sig/Chace Route PRN Reason Start Time Stop Time Status Last Admin Dose Admin Cefepime HCl 2 gm/ Sodium Chloride 55 ml @ 110 mls/hr Q12HR@0500,1700 IVPB 08/12/19 17:00 08/18/19 16:59 08/12/19 16:50 Dextrose (Dextrose 50%) 25 ml Q30M PRN IV Hypoglycemia 08/12/19 14:45 09/11/19 07:14 Dextrose (Dextrose 50%) 50 ml Q30M PRN IV Hypoglycemia 08/12/19 14:45 09/11/19 07:14 Insulin Aspart (NovoLOG) BEFORE MEALS AND HS SUBQ 08/12/19 16:30 09/11/19 11:29 08/12/19 21:19 Insulin Aspart (NovoLOG) 5 units NOVOTIAC SUBQ 08/12/19 16:50 09/11/19 11:49 08/12/19 16:54 Insulin Detemir (Levemir) 15 units DAILY SUBQ 08/13/19 09:00 09/11/19 07:59 Sodium Chloride 1,000 ml @ 100 mls/hr Q10H IV 08/12/19 14:45 09/11/19 07:59 08/12/19 21:00 Vancomycin HCl (Vanco rx to dose) 1 ea DAILY PRN MISC Per rx protocol 08/12/19 15:00 09/11/19 14:59 Vancomycin HCl 500 mg/Sodium Chloride 110 ml @ 110 mls/hr Q12HR@0600,1800 IVPB 08/12/19 18:00 08/17/19 05:59 08/12/19 18:08 Gordy Zarco M.D. Aug 12, 2019 22:18
[2019-08-13] VITALS: BP 110/68
[2019-08-13 04:00] VITALS: BP 116/69
[2019-08-13] MEDS: Cefepime HCl 2 GM in NS 55 ML IVPB SCH ×2 (04:51→16:55)
--- NOTE | 2019-08-13 06:06 | NUR ---
NURSE NOTES: RESTED WELL, NO SIGNIFICANT CHANGE OF CONDITION NOTED THROUGHOUT THE NIGHT. SAFETY MAINTAINED. NAD.
[2019-08-13] MEDS: Vancomycin 500 MG in NS 110 ML IVPB SCH (06:35)
[2019-08-13] MEDS: NovoLOG Insulin Flexpen SUBQ SCH ×7 (06:38→16:59)
--- NOTE | 2019-08-13 07:30 | NUR ---
NURSE NOTES: Patient is in bed awake and able to verbalize needs. Stable. Denies pain or SOB. Patient is encouraged to use call light for assistance, verbalized understanding. Patient is in good spirits in bed in locked and lowest position with call light within reach. Will continue to monitor.
--- NOTE | 2019-08-13 07:30 | NUR ---
HAND-OFF: Report given to LYNN ONOFRE RN.
[2019-08-13 08:00] VITALS: BP 119/79
[2019-08-13] MEDS ORDERED: Levemir Flexpen SUBQ SCH ×2 (09:00→21:00)
[2019-08-13] MEDS: Vancomycin 1gm/D5W 275ml IVPB SCH ×4 (09:29→18:01)
--- NOTE | 2019-08-13 10:24 | NUR ---
RD ASSESSMENT & RECOMMENDATIONS SEE CARE ACTIVITY FOR COMPLETE ASSESSMENT DAILY ESTIMATED NEEDS: Needs based on DM, underweight 56kg 30-35 kcals/kg 6545-9482 total kcals 1-1.5 g protein/kg 56-84 g total protein 25-30 mL/kg 3710-0095 total fluid mLs NUTRITION DIAGNOSIS: 1) Underweight r/t h/o homelessness as evidenced by BMI underweight per guidelines, pt is 72% of [place] Body Weight w/ generalized moderate wasting. 2) Altered nutrition related lab values r/t DKA as evidenced by BG on adm 757, uglu 4+, (+) acetone, A1C 10.3. CURRENT DIET: [facility] PO DIET RECOMMENDATIONS: [facility] ADDITIONAL RECOMMENDATIONS: 1) Add 1-carb/ high pro snack in b/w meals 2) Weekly weight d/t underweight status 3) Monitor lytes daily 4) Glucerna qdaily
--- NOTE | 2019-08-13 11:38 | General Progress Note ---
Assessment/Plan Problem List: (1) DKA (diabetic ketoacidoses) ICD Codes: E11.10 - Type 2 diabetes mellitus with ketoacidosis without coma SNOMED: 248587530, [id number] Qualifiers: Qualified Codes: E13.10 - Other specified diabetes mellitus with ketoacidosis without coma (2) Diabetes mellitus ICD Codes: E11.9 - Type 2 diabetes mellitus without complications SNOMED: 89631507 Assessment/Plan: DKA resolved fasting glucose elevated - add Levemir 4 units qhs - continue Levemir 15 units qam - continue Novolog 5 units ac tid + SSI Subjective ROS Limited/Unobtainable: Yes Allergies: Coded Allergies: No Known Allergies (Unverified , 08/11/19) Subjective events noted he is resting Item Value Date Time Bedside Blood Glucose 277 mg/dl H 08/13/19 0928 Bedside Blood Glucose 277 mg/dl H 08/13/19 0639 Bedside Blood Glucose 112 mg/dl 08/12/19 2119 Bedside Blood Glucose 133 mg/dl H 08/12/19 1654 Bedside Blood Glucose 219 mg/dl H 08/12/19 1203 Objective Last 24 Hour Vital Signs Date Time Temp Pulse Resp B/P (MAP) Pulse Ox O2 Delivery O2 Flow Rate FiO2 08/13/19 09:00 Room Air 08/13/19 08:00 98.4 100 21 119/79 (92) 97 08/13/19 04:00 97.9 87 18 116/69 (85) 99 08/13/19 00:00 98.7 83 18 110/68 (82) 100 08/12/19 21:00 Room Air 08/12/19 20:00 97.7 92 18 109/66 (80) 99 08/12/19 16:00 97.3 91 107/65 (79) 08/12/19 14:50 97.4 100 16 111/67 (82) 99 08/12/19 14:00 90 16 110/60 (77) 100 08/12/19 13:00 98 15 103/51 (68) 100 08/12/19 12:00 84 08/12/19 12:00 98.0 96 16 114/80 (91) 100 08/12/19 12:00 Room Air Intake and Output 08/12/19 08/13/19 19:00 07:00 Intake Total 1590 ml 1400 ml Balance 1590 ml 1400 ml Intake Oral 480 ml 600 ml IV Total 1110 ml 800 ml # Voids 4 2 Laboratory Tests 08/13/19 05:05: Vancomycin Level Trough 2.0L Height (Feet): 5 Height (Inches): 11.00 Weight (Pounds): 123 General Appearance: no apparent distress Neck: normal alignment Cardiovascular: normal rate Respiratory/Chest: lungs clear Abdomen: normal bowel sounds Objective Current Medications Medications (Trade) Dose Ordered Sig/Chace Route PRN Reason Start Time Stop Time Status Last Admin Dose Admin Cefepime HCl 2 gm/ Sodium Chloride 55 ml @ 110 mls/hr Q12HR@0500,1700 IVPB 08/12/19 17:00 08/18/19 16:59 08/13/19 04:51 Dextrose (Dextrose 50%) 25 ml Q30M PRN IV Hypoglycemia 08/12/19 14:45 09/11/19 07:14 Dextrose (Dextrose 50%) 50 ml Q30M PRN IV Hypoglycemia 08/12/19 14:45 09/11/19 07:14 Insulin Aspart (NovoLOG) BEFORE MEALS AND HS SUBQ 08/12/19 16:30 09/11/19 11:29 08/13/19 06:38 Insulin Aspart (NovoLOG) 5 units NOVOTIAC SUBQ 08/12/19 16:50 09/11/19 11:49 08/13/19 06:39 Insulin Detemir (Levemir) 15 units DAILY SUBQ 08/13/19 09:00 09/11/19 07:59 08/13/19 09:28 Sodium Chloride 1,000 ml @ 100 mls/hr Q10H IV 08/12/19 14:45 09/11/19 07:59 08/13/19 09:28 Vancomycin HCl (Vanco rx to dose) 1 ea DAILY PRN MISC Per rx protocol 08/12/19 15:00 09/11/19 14:59 Vancomycin HCl 1 gm/Dextrose 275 ml @ 183.708 mls/hr Q8H IVPB 08/13/19 10:00 08/18/19 09:59 08/13/19 09:29 Deon Hill MD Aug 13, 2019 11:38
--- NOTE | 2019-08-13 11:39 | History & Physical ---
History and Physical History & Physicial General Date patient seen: Aug 11, 2019 in the ER Chief Complaint: nausea,Vomiting and productive cough Reason for Consultation: leukocytosis rule out sepsis , with cough Present Illness HPI This is a 34-year-old male with PMH of DM poorly controlled , and was recently diagnosed with leukemia at [facility], presented to [facility] ED for nausea, vomiting, and poor oral intake for the last couple of days . Patient developed cough productive of greenish phlegm too over the last 3 days , no SOB. denied any recent travel or sick contact. He also complained of abdominal pain which started this morning. Pain is burning, 7 out of 10, nonradiating. Denies chest pain or shortness of breath. Denies fevers or chills. Accu-Chek in ED was critically high. he is a diabetic and non compliant with his medications. 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 Has not yet seen an oncologist for this yet and not on any treatment yet. Denies any other associated symptoms. in ED his wbc was elevated, so infectious disease consult was requested for antibiotics treatment Allergies: Coded Allergies: No Known Allergies (Unverified , 08/11/19) Past Medical/Surgical History Past Medical/Surgical History: (1) Diabetes mellitus (2) Leukemia (3) Gastritis Review of Systems Constitutional: Reports: malaise, weakness Eye: Reports: no symptoms ENT: Reports: nose congestion, nasal discharge Respiratory: Reports: cough, sputum Cardiovascular: Reports: no symptoms Gastrointestinal: Reports: abdominal pain, nausea, vomiting Genitourinary: Reports: no symptoms Musculoskeletal: Reports: muscle pain Skin: Reports: no symptoms Psychiatric: Reports: anxiety Endocrine: Reports: no symptoms Hematologic/Lymphatic: Reports: see HPI Physical Exam General Appearance: WD/WN, no apparent distress, alert, lethargic, cachetic, thin Lines, tubes and drains: peripheral HEENT: normocephalic, atraumatic, anicteric, mucous membranes moist, PERRL, EOMI, pharynx normal, supple, no JVD Neck: non-tender, normal alignment, supple, normal inspection Respiratory/Chest: chest wall non-tender, no accessory muscle use, decreased breath sounds Cardiovascular/Chest: normal peripheral pulses, normal rate, regular rhythm, no gallop/murmur, no JVD Abdomen: normal bowel sounds, no mass, abnormal bowel sounds, tender Genitourinary/Rectal: normal genital exam Extremities: normal range of motion, non-tender, normal inspection, no calf tenderness Skin Exam: normal pigmentation, warm/dry Neurologic: member service representative II-XII grossly normal, alert, responsive Musculoskeletal: normal muscle bulk, no effusion Lab: dated Aug 13 , reviewed in the chart A/P: 1- DKA 2- Acute metabolic encephalopathy 3- Leukemia 4- Non compliance with out patient medication Plan: Agree for ICU admit C/w IV insulin drip Endo , Infection disease consults are notified Anh Wei MD Aug 13, 2019 11:39
--- NOTE | 2019-08-13 11:40 | General Progress Note ---
Assessment/Plan Assessment/Plan: S: I am feeling very well O: normal apetite today. Denies any pain Physical Exam General Appearance: WD/WN, no apparent distress, alert, lethargic, cachetic, thin Lines, tubes and drains: peripheral HEENT: normocephalic, atraumatic, anicteric, mucous membranes moist, PERRL, EOMI, pharynx normal, supple, no JVD Neck: non-tender, normal alignment, supple, normal inspection Respiratory/Chest: chest wall non-tender, no accessory muscle use, decreased breath sounds Cardiovascular/Chest: normal peripheral pulses, normal rate, regular rhythm, no gallop/murmur, no JVD Abdomen: normal bowel sounds, no mass, abnormal bowel sounds, tender Genitourinary/Rectal: normal genital exam Extremities: normal range of motion, non-tender, normal inspection, no calf tenderness Skin Exam: normal pigmentation, warm/dry Neurologic: elevator operator service II-XII grossly normal, alert, responsive Musculoskeletal: normal muscle bulk, no effusion Lab: dated Aug 13 , reviewed in the chart A/P: 1- DKA 2- Acute metabolic encephalopathy 3- Leukemia 4- Non compliance with out patient medication Plan: Will monitor BS Notes from ID and Endo are reviewed Subjective Allergies: Coded Allergies: No Known Allergies (Unverified , 08/11/19) Objective Last 24 Hour Vital Signs Date Time Temp Pulse Resp B/P (MAP) Pulse Ox O2 Delivery O2 Flow Rate FiO2 08/13/19 09:00 Room Air 08/13/19 08:00 98.4 100 21 119/79 (92) 97 08/13/19 04:00 97.9 87 18 116/69 (85) 99 08/13/19 00:00 98.7 83 18 110/68 (82) 100 08/12/19 21:00 Room Air 08/12/19 20:00 97.7 92 18 109/66 (80) 99 08/12/19 16:00 97.3 91 107/65 (79) 08/12/19 14:50 97.4 100 16 111/67 (82) 99 08/12/19 14:00 90 16 110/60 (77) 100 08/12/19 13:00 98 15 103/51 (68) 100 08/12/19 12:00 84 9/28/19 12:00 98.0 96 16 114/80 (91) 100 08/12/19 12:00 Room Air Intake and Output 08/12/19 08/13/19 19:00 07:00 Intake Total 1590 ml 1400 ml Balance 1590 ml 1400 ml Intake Oral 480 ml 600 ml IV Total 1110 ml 800 ml # Voids 4 2 Laboratory Tests 08/13/19 05:05: Vancomycin Level Trough 2.0L Height (Feet): 5 Height (Inches): 11.00 Weight (Pounds): 123 Anh Wei MD Aug 13, 2019 11:40
[2019-08-13 12:00] VITALS: BP 113/74
[2019-08-13 16:00] VITALS: BP 104/70
--- NOTE | 2019-08-13 17:40 | NUR ---
NURSE NOTES: Awaiting response from Dr. Clarke regarding notification of BS 53. Patient is stable and asymptomatic. Held insulin. Patient ate 100% of dinner. Will continue to monitor.
--- NOTE | 2019-08-13 17:49 | NUR ---
NURSE NOTES: Paged Dr. Hill regarding BS [address] Wei. Will continue to monitor.
[2019-08-13] MEDS ORDERED: NovoLOG Insulin Flexpen SUBQ SCH (18:15)
--- NOTE | 2019-08-13 18:20 | NUR ---
NURSE NOTES: Patient given 4 units of Novolog as ordered. Tolerated well. Patient then stated he wants to leave hospital AMA. Patient made aware of all risks of leaving hospital against medical advice. Patient stated, "i hate the hospital." Patient aware of potential complications of his conditions, patient continues to state that he wants to leave AMA.
--- NOTE | 2019-08-13 18:42 | NUR ---
NURSE NOTES: Patient left hospital AMA. Patient aware of all risks and benefits of leaving hospital against medical advice. Patient is stable. Patient given juice and water to avoid hypoglycemia. Patient encouraged to follow up with primary care physician. IV access removed. Hospital name band removed. Skin is clean, dry, and intact. Patient has all belongings and medications. Dr. Wei and Dr. Hill made aware. Nursing medical operations supervisor aware.
--- NOTE | 2019-08-13 18:45 | NUR ---
NURSE NOTES:PT. WAS DISCHARGE IN CENSUS THRU HOME SELF CARE BY MISTAKE,UNABLE TO AMEND CHANGES,PT, WAS DISCHARGED AMA,PT. SIGNED FORM,CELIO JHA.WAS NOTIFIED.
--- NOTE | 2019-08-14 09:58 | Discharge Summary ---
Discharge Summary Discharge Summary _ DATE OF ADMISSION: 08/11/2019 DATE OF DISCHARGE: 08/13/2019 DISCHARGED BY: Dr. Wei REASON FOR ADMISSION: 34 years old male with past medical history of diabetes , gastritis, presented by EMS with nausea ,vomiting, and abdominal pain. Pain started earlier that morning. Pain described as burning, nonradiating , 7 out of 10 on a scale 1-10. Patient denied chest pain and shortness of breath. Patient denied fever and chills. Accu-Chek was critically ill. Patient reported compliance with his antiglycemic medication. Patient reported being diagnosed with leukemia 1 month ago while incarcerated. Patient had not seen a primary care provider at this time and was not started on any treatment. Upon evaluation laboratory work-up revealed leukocytosis WBC 13.4, hemoglobin 16.4 , hematocrit 51.9. Platelet count 420. Urinalysis revealed +1 protein , + 4 glucose , +4 ketones, no evidence of UTI. Sodium 131, potassium 5.7. CO2 8. BUN 30, creatinine 1.7. Anion gap 29. ABG revealed evidence of metabolic acidosis and stable oxygenation . EKG revealed sinus rhythm , no acute ischemic changes . Chest x-ray demonstrated no acute cardiopulmonary pathology. In emergency department patient t started on the IV fluids, received insulin bolus and started on insulin drip as per protocol. One ampule of bicarbonate provided as well. Patient subsequently admitted to ICU for further management. CONSULTANTS: ID specialist Dr. Zarco chief psychologist Dr. Hill complex commercial litigation paralegal/oncologist Dr. Jorgensen [facility]: Patient admitted to ICU. Patient was on insulin drip as per protocol. Renal parameters and electrolytes were closely monitored. Electrolytes corrected as needed , and nephrotoxins were avoided. When anion gap closed, insulin drip was discontinued. Patient started on long-acting Levemir, short acting NovoLog pre-meals as well as sliding scale of Novolog as per chief psychologist recommendations. Further adjustments were done according to the blood glucose levels by chief psychologist. Patient was counseled on compliance with medication regimen. Hemoglobin A1c 10.3, not at goal. Patient will need further optimization of anti-glycemic regimen as outpatient. Diabetic teaching provided. Patient was counseled on compliance with diabetic diet. Infectious disease specialist followed. Patient was started on empiric antibiotic for possible bronchitis since patient demonstrated productive cough . No fevers , leukocytosis resolved next day. Chest x-ray revealed no acute cardiopulmonary pathology. Manager Privacy/oncologist followed. Patient apparently was recently diagnosed at [facility] with leukemia , had bone marrow biopsy , but was /incarcerated at that time and did not remember exactly what type of leukemia he had. Patient still have not started chemotherapy. Patient was recommended to see oncologist at [facility] once discharged. Blood sugar stabilized with current treatment. All electrolytes stable. BUN 14, creatinine 1.2. Patient clinically stabilized and was ready for discharge home. FINAL DIAGNOSES: DKA Diabetes mellitus out of control Gastritis Cough , productive of purulent sputum Leukemia, recently diagnosed Leukocytosis -resolved DISCHARGE MEDICATIONS: List of Medication provided to patient. DISCHARGE INSTRUCTIONS: Discharge home. Outpatient follow-up with primary care provider and [facility] for further management of leukemia. I have been assigned to dictate discharge summary for this account. I was not involved in the patient's management. Lynne Gardner NP Aug 14, 2019 09:58
--- NOTE | 2019-08-14 11:45 | Cardiology Report ---
APPROVED REPORT EKG Measurement Heart [id number] Normal sinus rhythm Normal ECG
== END 2019-08-13 18:30 | disposition left against medical advice (07) | DRG 420 ==
LOC: EDBD 10:35 → EMR 11:25 → ICU 12:55 → EDBEDREQSVC 16:37 → EDBEDREQ 16:37 → ICU 18:17 → 3E 08-12 14:41
DX: E10.10 Type 1 diabetes mellitus with ketoacidosis without coma (principal); C95.90 Leukemia, unspecified not having achieved remission; G93.41 Metabolic encephalopathy; Z91.14 Patient's other noncompliance with medication regimen; Z79.4 Long term (current) use of insulin; K29.70 Gastritis, unspecified, without bleeding
CPT/HCPCS: 36415; 36600; 71045; 80048; 80053; 80202; 81003; 82009; 82803; 82962; 83036; 83735; 85025; 87081; 93005; 96361; 96374; 96375; 99291; J1815; J2405; S5561